=== PATIENT | male | born 1930 | race Caucasian/White ===

== ENCOUNTER 2017-01-15 10:45 | Observation (INO) | payer MEDICARE, BC ==
--- NOTE | 2017-01-15 11:07 | EDM.PDOC ---
ED HPI GENERAL MEDICAL PROBLEM - General Chief Complaint: Syncope Stated Complaint: syncopal Episode Time Seen by Provider: 01/15/17 10:55 Source of Information: Reports: Patient, Family (son & ) History Limitations: Reports: No Limitations - History of Present Illness INITIAL COMMENTS - FREE TEXT/NARRATIVE: Grady is an 86 year old male who presents to the ER via EMS. reports patient was sitting at the table having breakfast around 0900 this morning when he suddenly became unresponsive. She reports his head went down and he started to drool. and son report that he was breathing very shallow, diaphoretic, and ashen in color. reports he did not fall out of chair. She reports that he was lethargic for about an hour. She denies any jerky movements or seizure like activity. EMS reports he was responsive and oriented to self only when they arrived on scene. EMS reports he was initially hypoxic, but his oxygen saturations improved enroute. Vital signs were otherwise stable. They report no neurologic deficit At time of examination, patient denies any dizziness, lightheadedness, fever, chills, chest pain, shortness of breath, N/V/D, neurologic deficit, weakness, or urinary symptoms. He denies any recent illness. reports he does have some dementia, but is back to his baseline orientation now. Onset: Today Onset Date: 01/15/17 Onset Time: 09:00 Duration: Resolved Prior to Arrival Associated Symptoms: Reports: Confusion, Diaphoresis, Syncope. Denies: Chest Pain, Cough, cough w sputum, Fever/Chills, Headaches, Loss of Appetite, Malaise , Nausea/Vomiting, Rash, Seizure, Shortness of Breath, Weakness - Related Data Allergies Allergy/AdvReac Type Severity Reaction Status Date / Time No Known Allergies Allergy Verified 01/15/17 10:52 Home Meds: Home Meds Aspirin 325 mg PO DAILY 01/15/17 [History] Donepezil [Aricept] 5 mg PO BEDTIME 01/15/17 [History] Dutasteride [Avodart] 0.5 mg PO BEDTIME 01/15/17 [History] Metoprolol Succinate 25 mg PO BEDTIME 01/15/17 [History] Simvastatin [Zocor] 10 mg PO BEDTIME 01/15/17 [History] Tamsulosin HCl 0.4 mg PO BEDTIME 01/15/17 [History] Past Medical History Cardiovascular History: Reports: Heart Valve Replacement Neurological History: Reports: CVA Psychiatric History: Reports: Dementia - Past Surgical History Cardiovascular Surgical History: Reports: Valve Replacement Social & Family History - Family History Family Medical History: Noncontributory ED ROS GENERAL - Review of Systems Review Of Systems: See Below Constitutional: Reports: Diaphoresis (at time of episode). Denies: Fever, Chills, Malaise, Weakness, Fatigue, Night Sweats, Decreased Appetite, Weight Loss, Weight Gain HEENT: Reports: Eye Discharge (watery, baseline), Hearing Loss. Denies: Dental Pain, Ear Discharge, Ear Pain, Eye Pain, Nosebleed, Nose Pain, Rhinitis, Sinus Problem, Throat Pain, Throat Swelling, Vertigo, Vision Change Respiratory: Reports: No Symptoms. Denies: Shortness of Breath, Wheezing, Pleuritic Chest Pain, Cough, Sputum, Hemoptysis Cardiovascular: Reports: Syncope (improved at time of presentation). Denies: Chest Pain, Blood Pressure Problem, Claudication, Dyspnea on Exertion, Edema, Lightheadedness, Orthopnea, Palpitations, PND Endocrine: Reports: No Symptoms GI/Abdominal: Reports: No Symptoms. Denies: Abdominal Pain, Anorexia, Black Stool, Bloody Stool, Constipation, Diarrhea, Distension, Flatus, Hematemesis, Hematochezia, Melena, Mucous in Stool, Nausea, Stool Incontinence, Vomiting : Reports: Frequency, Urgency. Denies: Discharge, Dysuria, Flank Pain, Hematuria, Incontinence, Pain, Urinary Retention Musculoskeletal: Reports: No Symptoms. Denies: Neck Pain Skin: Reports: No Symptoms, Pallor (at time of episode), Diaphoresis (at time of episode) Neurological: Reports: Confusion (at time of episode and enroute with EMS, return to baseline at time of ER presentation), Syncope, Tremors (to BUE, reports PCP has questioned Parkinsons). Denies: Dizziness, Headache, Numbness, Paresthesia, Pre-Existing Deficit, Seizure, Tingling, Trouble Speaking, Weakness , Change in Speech Psychiatric: Reports: Confusion (at time of episode) Hematologic/Lymphatic: Reports: No Symptoms Immunologic: Reports: No Symptoms - Physical Exam Exam: See Below Exam Limited By: No Limitations General Appearance: Alert, WD/WN, No Apparent Distress Eye Exam: Bilateral Eye: EOMI, Normal Fundi, Normal Inspection, PERRL, Other ( erythematous sclera, watery discharge) Ears: Normal External Exam, Normal Canal, Hearing Grossly Normal, Normal TMs Nose: Normal Inspection, Normal Mucosa, No Blood Throat/Mouth: Normal Inspection, Normal Lips, Normal Teeth, Normal Gums, Normal Oropharynx, Normal Voice, No Airway Compromise Head Exam: Atraumatic, Normocephalic Neck: Normal Inspection, Supple, Non-Tender, Full Range of Motion. No: Carotid Bruit Respiratory/Chest: No Respiratory Distress, Lungs Clear, Normal Breath Sounds, No Accessory Muscle Use, Chest Non-Tender. No: Respiratory Distress, Crackles, Rhonchi, Wheezing Cardiovascular: Normal Peripheral Pulses, Regular Rate, Rhythm, No Edema, No Gallop, No JVD, No Murmur, No Rub GI/Abdominal: Normal Bowel Sounds, Soft, Non-Tender, No Organomegaly, No Distention, No Abnormal Bruit, No Mass (Male) Exam: Deferred Rectal (Males) Exam: Deferred Neuro Exam (Abbreviated): Alert, Oriented, CN II-XII Intact, Normal Cognition, Normal Reflexes, No Motor/Sensory Deficits, Memory Loss Recent Events (does not recall syncopal episode). No: Confused, Disoriented, Slow to Respond, Unresponsive Back Exam: Normal Inspection, Full Range of Motion. No: CVA Tenderness (L), CVA Tenderness (R) Extremities: Normal Inspection, Normal Range of Motion, Non-Tender, No Pedal Edema, Normal Capillary Refill Psychiatric: Normal Affect, Normal Mood Skin Exam: Warm, Dry, Intact, Normal Color, No Rash Course - Vital Signs Last Recorded V/S: Last Vital Signs Temp 97.8 F 01/15/17 15:39 Pulse 79 01/15/17 15:39 Resp 16 01/15/17 15:39 BP 128/77 01/15/17 15:39 Pulse Ox 99 01/15/17 15:39 - Orders/Labs/Meds Orders: Active Orders 24 hr Category Date Time Status Head wo Cont [CT] Stat Exams 01/15/17 10:52 Taken UA W/MICROSCOPIC [URIN] Stat Lab 01/15/17 10:52 Uncollected Medication Orders Aspirin (Aspirin) 325 mg PO DAILY [facility] Docusate Sodium (Colace) 100 mg PO BID PRN PRN Reason: Constipation Sodium Chloride (Normal Saline) 1,000 mls @ 75 mls/hr IV ASDIRECTED JAMI Last Admin: 01/15/17 13:40 Dose: 75 mls/hr Influenza Virus Vaccine (Fluzone Quad [id number]) 60 mcg IM .ONCE ONE Stop: 01/15/17 16:01 Magnesium Hydroxide (Milk Of Magnesia) 30 ml PO Q12H PRN PRN Reason: Constipation Metoprolol Succinate (Toprol Xl) 25 mg PO BEDTIME [facility] Donepezil (Aricept) 10 Mg Tablet Own Med 0 mg PO BEDTIME [facility] Dutasteride (Avodart ) 0.5 Mg Capsules Own Med 0 mg PO BEDTIME [facility] Ondansetron HCl (Zofran) 4 mg IV Q6H PRN PRN Reason: Nausea/Vomiting Simvastatin (Zocor) 10 mg PO BEDTIME [facility] Tamsulosin HCl (Flomax) 0.4 mg PO BEDTIME [facility] Temazepam (Restoril) 15 mg PO BEDTIME PRN PRN Reason: Sleep Labs: Laboratory Tests 01/15/17 01/15/17 01/15/17 Range/Units 10:52 10:52 10:52 WBC 12.2 H (5.0-10.0) 10^3/uL RBC 5.56 (4.50-6.00) 10^6/uL Hgb 16.1 (14.0-18.0) g/dL Hct 49.2 (40.0-54.0) % MCV 88.5 (82.0-94.0) fL MCH 29.0 (27.0-32.0) pg MCHC 32.7 L (33.0-38.0) g/dL RDW Coeff of Naheed 13.8 (11.0-15.0) % Plt Count 175 (150-400) 10^3/uL Add Manual Diff Yes Neutrophils % (Manual) 51 (35-85) % Lymphocytes % (Manual) 29 (21-55) % Monocytes % (Manual) 19 H (2-12) % Eosinophils % (Manual) 1 (0-5) % Absolute Neutrophils 6.22 (1.80-7.00) 10^3/uL Lymphocytes # (Manual) 3.54 (1.00-4.80) 10^3/uL Monocytes # (Manual) 2.32 H (0.00-0.80) 10^3/uL Eosinophils # (Manual) 0.12 (0.00-0.45) 10^3/uL Reactive Lymphocytes Moderate H (NOT SEEN) PT 11.6 (9.7-12.3) SEC INR 1.07 (0.92-1.18) APTT 28.0 (24.5-30.9) SEC Sodium 139 (136-145) mEq/L Potassium 4.3 (3.5-5.0) mEq/L Chloride 104 (98-106) mEq/L Carbon Dioxide 31 (21-32) mmol/L BUN 28 H (7-18) mg/dL Creatinine 1.3 (0.7-1.3) mg/dL Est Cr Clr Drug Dosing 39.28 mL/min Estimated GFR (MDRD) 52 L (>=60) mL/min Glucose 89 (75-99) mg/dL Calcium 9.2 (8.4-10.1) mg/dL Creatine Kinase 105 (35-232) U/L Troponin I < 0.017 (0.00-0.06) ng/mL Meds: Medications Generic Name Dose Route Start Last Admin Trade Name Freq PRN Reason Stop Dose Admin Aspirin 325 mg 01/16/17 08:00 Aspirin PO DAILY [facility] Docusate Sodium 100 mg 01/15/17 13:04 Colace PO BID PRN Constipation Sodium Chloride 1,000 mls @ 75 mls/hr 01/15/17 13:04 01/15/17 13:40 Normal Saline IV 75 mls/hr ASDIRECTED JAMI Administration Influenza Virus Vaccine 60 mcg 01/15/17 16:00 Fluzone Quad [id number] IM 01/15/17 16:01 .ONCE ONE Magnesium Hydroxide 30 ml 01/15/17 13:04 Milk Of Magnesia PO Q12H PRN Constipation Metoprolol Succinate 25 mg 01/15/17 20:00 Toprol Xl PO BEDTIME [facility] Donepezil (Aricept) 0 mg 01/15/17 20:00 10 Mg Tablet Own PO Med BEDTIME [facility] Dutasteride (Avodart 0 mg 01/15/17 20:00 ) 0.5 Mg Capsules PO Own Med BEDTIME [facility] Ondansetron HCl 4 mg 01/15/17 13:04 Zofran IV Q6H PRN Nausea/Vomiting Simvastatin 10 mg 01/15/17 20:00 Zocor PO BEDTIME [facility] Tamsulosin HCl 0.4 mg 01/15/17 20:00 Flomax PO BEDTIME [facility] Temazepam 15 mg 01/15/17 13:04 Restoril PO BEDTIME PRN Sleep - Radiology Interpretation Free Text/Narrative:: Head CT shows no acute hemorrhage or ischemic changes. Does show some paranchyma volume loss in comparison with previous scans. CT Results Date: 01/15/17 CT Results Time: 11:35 - Re-Assessments/Exams Free Text/Narrative Re-Assessment/Exam: 01/15/17 1200 Discussed labs, EKG, and CT results with patient and family. Will admit to observation with telemetry. Patient and family agreeable with plan of care. Departure - Departure Time of Disposition: 11:57 Disposition: Refer to Observation Condition: Fair Clinical Impression: Syncope Qualifiers: Syncope type: unspecified Qualified Code(s): R55 - Syncope and collapse - Discharge Information - Problem List & Annotations (1) Syncope SNOMED Code(s): 378458928 Code(s): R55 - SYNCOPE AND COLLAPSE Status: Acute Priority: High Current Visit: Yes Onset Date: 01/15/17 Qualifiers: Syncope type: unspecified Qualified Code(s): R55 - Syncope and collapse (2) Hypertension SNOMED Code(s): 36045822 Code(s): I10 - ESSENTIAL (PRIMARY) HYPERTENSION Status: Acute Current Visit: Yes Qualifiers: Hypertension type: unspecified Qualified Code(s): I10 - Essential (primary ) hypertension (3) Hyperlipidemia SNOMED Code(s): 46420785 Code(s): E78.5 - HYPERLIPIDEMIA, UNSPECIFIED Status: Acute Current Visit : Yes Qualifiers: Hyperlipidemia type: unspecified Qualified Code(s): E78.5 - Hyperlipidemia , unspecified - Problem List Review Problem List Initiated/Reviewed/Updated: Yes - My Orders Last 24 Hours: My Active Orders 01/15/17 10:52 Head wo Cont [CT] Stat UA W/MICROSCOPIC [URIN] Stat - Assessment/Plan Admission H&P: Please use this note as an admission H&P Last 24 Hours: My Active Orders 01/15/17 10:52 Head wo Cont [CT] Stat UA W/MICROSCOPIC [URIN] Stat Assessment:: Syncope and Collapse Plan: Will admit to medical/surgical observation with telemetry. Carotid ultrasound Echocardiography IVF @ 75 mL/hr. Discussed case with Dr. Abdul.
[2017-01-15 11:27] LABS: CHLORIDE,CL 104 mEq/L (98-106); SODIUM,NA 139 mEq/L (136-145)
[2017-01-15] MEDS ORDERED: Magnesium Hydroxide 400 MG/5 ML Susp 30 ML Cup PO PRN (13:04)
[2017-01-15] MEDS ORDERED: Docusate Sodium 100 MG Cap PO PRN (13:04)
[2017-01-15] MEDS ORDERED: Temazepam 15 MG Cap PO PRN (13:04)
[2017-01-15] MEDS ORDERED: Ondansetron 4 MG/2 ML SDV IV PRN (13:04)
[2017-01-15] MEDS: Sodium Chloride 0.9% 1,000 ML IV SCH (13:40)
[2017-01-15] MEDS ORDERED: FLU Vacc QS 2017-18 (36mos UP)/PF 60 MCG/0.5 ML Syringe IM ONE (16:00)
[2017-01-15] MEDS ORDERED: LORazepam 2 MG/ML Syringe IVPUSH PRN ×2 (17:27→17:34)
[2017-01-15] MEDS: DONEPEZIL 10 MG PO SCH (19:34)
[2017-01-15] MEDS: Tamsulosin 0.4 MG Cap.ER **OWN MED PO SCH (19:35)
[2017-01-15] MEDS: DUTASTERIDE 0.5 MG PO SCH (19:35)
[2017-01-15] MEDS: Metoprolol Succinate 25 MG Tab.ER **OWN MED PO SCH (19:36)
[2017-01-15] MEDS: Simvastatin 10 MG Tab **OWN MED PO SCH (19:36)
[2017-01-16] MEDS: Sodium Chloride 0.9% 1,000 ML IV SCH (03:04)
[2017-01-16] MEDS: Aspirin 325 MG Tab.EC PO SCH (08:27)
[2017-01-16] MEDS ORDERED: Lactated Ringers 1,000 ML IV SCH (08:30)
[2017-01-16 08:46] LABS: CHLORIDE,CL 109 mEq/L (98-106); SODIUM,NA 143 mEq/L (136-145)
[2017-01-16] MEDS: Enoxaparin 40 MG/0.4 ML Syringe SUBCUT SCH (09:41)
--- NOTE | 2017-01-16 13:39 | PN ---
DATE: 01/16/2017 S: Grady Santillan was admitted yesterday with a full syncopal episode. From the history, he was just sitting and they came to look at him and he was totally passed out, was brought here to the ER, somewhat dehydrated with specific gravity, was given IV fluids. O: GENERAL: This morning, he feels fine. NECK: Supple without thyromegaly or neck vein distention. CHEST: Clear. CARDIAC: Regular. Grade 2 murmur over aortic area. ABDOMEN: Soft. EXTREMITIES: Unremarkable. NEUROLOGIC: Unremarkable. ASSESSMENT: SYNCOPAL EPISODE. P: Echo carotid, pending. MESERET/FABIANA /[id number]
[2017-01-16] MEDS: DONEPEZIL 10 MG PO SCH (19:09)
[2017-01-16] MEDS: Tamsulosin 0.4 MG Cap.ER **OWN MED PO SCH (19:09)
[2017-01-16] MEDS: DUTASTERIDE 0.5 MG PO SCH (19:09)
[2017-01-16] MEDS: Metoprolol Succinate 25 MG Tab.ER **OWN MED PO SCH (19:11)
[2017-01-16] MEDS: Simvastatin 10 MG Tab **OWN MED PO SCH (19:14)
[2017-01-17] MEDS: Enoxaparin 40 MG/0.4 ML Syringe SUBCUT SCH (08:08)
[2017-01-17] MEDS: Aspirin 325 MG Tab.EC PO SCH (08:09)
--- NOTE | 2017-01-17 08:55 | DISCH ---
HISTORY: Grady Santillan came in with a full syncopal episode. He has been in the hospital, placed on telemetry. Had little irregular pulse, but no acute changes. Pending are echo and carotid ultrasound. LABORATORY DATA: Labs here in the hospital, CBC looked good. Panel-8 looked good. D-dimer was fine. TSH was good. C-reactive protein was good. Troponins were good. Urine was good. PHYSICAL EXAMINATION: On discharge; NECK: Supple. CHEST: Clear. CARDIAC: Regular. ABDOMEN: Soft. EXTREMITIES: Remarkable. IMPRESSION: 1. Syncope, question etiology. He will be going home on a 24-hour Holter monitor. 2. Hypertension. 3. Hyperlipidemia. MESERET/FABIANA /[id number]
== END 2017-01-17 12:00 | disposition home or self-care (01) ==
LOC: CC.ED 10:45 → CC.MS 12:00 → UNDOADMOB 12:44
PROVIDERS: ADMIT Nurse Practitioner Family; ATTEND General Practice
DX: R55 Syncope and collapse (principal); I10 Essential (primary) hypertension; E78.5 Hyperlipidemia, unspecified; Z79.82 Long term (current) use of aspirin; Z79.899 Other long term (current) drug therapy; Z95.2 Presence of prosthetic heart valve
CPT/HCPCS: 36415; 70450; 80048; 81001; 82550; 83735; 84443; 84484; 85025; 85379; 85610; 85730; 86140; 93005; 93306; 93880; 97161; 99285; A9270; J1650; J7030; J7120; 90686; 93010; 96360; 96361; 96372; 99217; 99220; 99225; G0008; G0378